=== PATIENT | male | born 1980 | race Caucasian/White ===

== ENCOUNTER → 2018-04-10 | Outpatient (CLI) | payer OTHER ==
[~2018-04-10] MED LIST: CLX20 PO; RTL20 PO; UNABLE; XYREM
--- NOTE | 2018-04-10 08:30 | DIAGNOSTIC IMAGING REPORT ---
BILIARY ABDOMEN LIMITED HISTORY: 37 years-old Male K82.4 Gallbladder polyp follow-up study in a patient with 3 mm gallbladder polyp COMPARISON: Right upper quadrant abdominal ultrasound 03/06/2018 TECHNIQUE: Multiple real-time sonographic images of the abdominal right upper quadrant were obtained assessing grayscale appearance and color flow FINDINGS: Study is limited secondary to obscuring bowel gas. Pancreas is not visualized. The liver appears unremarkable without focal mass or intrahepatic biliary ductal dilation. No gallbladder wall thickening, shadowing cholelithiasis or pericholecystic fluid. Unchanged 3 mm area of increased echogenicity along the nondependent bladder wall at the fundus without internal flow suggesting gallbladder polyp. This is unchanged. Common bile duct is normal, 5 mm. The right kidney is unremarkable without hydronephrosis. IMPRESSION: 1. Unchanged 3 mm polyp of the fundal gallbladder. 2. No cholelithiasis or sonographic evidence of acute cholecystitis. 3. No biliary ductal dilation. The above report was generated using voice recognition software. It may contain grammatical, syntax or spelling errors. Electronically signed by: Marek Schwartz M.D. 04/10/2018 8:29 AM Dictated Date/Time: 04/10/2018 8:27 AM
== END | disposition home or self-care (01) ==
LOC: C.ULTR 07:27
PROVIDERS: ATTEND Registered Nurse
DX: K82.4 Cholesterolosis of gallbladder (principal)